=== PATIENT | female | born 1965 | race Caucasian/White ===

== ENCOUNTER 2017-11-09 11:14 | Emergency (ER) | payer BC, MEDICAID ==
[~2017-11-09] VITALS: Ht 167.6 cm; Wt 72.2 kg
[2017-11-09 12:53] VITALS: BP 132/94
== END 2017-11-09 12:55 | disposition home or self-care (01) ==
LOC: ER 11:15
DX: R21 Rash and other nonspecific skin eruption (principal); Z88.5 Allergy status to narcotic agent
CPT/HCPCS: 99281

== ENCOUNTER 2020-01-20 23:37 | Emergency (ER) | payer MEDICAID ==
[~2020-01-20] VITALS: Ht 167.6 cm; Wt 68.2 kg
[~2020-01-20 23:37] MED LIST: BUPR-344 PO; DISU500T PO; GABA-532 PO; LEVO125T PO; TRAZ-251 PO
[2020-01-20] MEDS ORDERED: famotidine/PF 10 mg/ml inj IV ONE (23:55)
[2020-01-20] MEDS ORDERED: pantoprazole 40 MG vial IV ONE (23:55)
[2020-01-20] MEDS ORDERED: phenobarbital inj 260 MG in normal saline 100ml IV soln 100 ML IV ONE (23:55)
[2020-01-20] MEDS ORDERED: normal saline 1000ML IV soln IVB ONE (23:55)
[2020-01-20] MEDS ORDERED: ondansetron/PF 4mg/2ml inj IV ONE (23:55)
[2020-01-20] MEDS ORDERED: magnesium oxide 400mg tablet PO ONE (23:55)
[2020-01-20] MEDS ORDERED: thiamine 100mg tablet PO ONE (23:55)
[2020-01-21 00:20] LABS: ALANINE AMINOTRANSFERASE 41 U/L (12-78); ALBUMIN 3.6 G/DL (3.4-5.0); ALBUMIN/GLOBULIN RATIO 1.1 (1.1-1.5); ALKALINE PHOSPHATASE 84 IU/L (46-116); ANION GAP 11 (8-16); BILIRUBIN,TOTAL 1.5 MG/DL (0.1-1.0); BLOOD UREA NITROGEN 21 MG/DL (7-18); BUN/CREATININE RATIO 18.3 (6.6-38.0); CALCIUM 8.2 MG/DL (8.5-10.1); CHLORIDE 104 MMOL/L (99-107); CREATININE 1.15 MG/DL (0.40-0.90); GLUCOSE 122 MG/DL (70-104); MAGNESIUM 1.9 MG/DL (1.5-2.4); POTASSIUM 3.4 MMOL/L (3.5-5.1); SODIUM 140 MMOL/L (135-145); TOTAL CARBON DIOXIDE 25.5 MMOL/L (24-32); eGFR 49 ML/MIN
[2020-01-21 00:29] LABS: BASOPHILS # (AUTO) 0.2 X10'3 (0-0.2); LYMPHOCYTES # (AUTO) 2.3 X10'3 (1.1-4.8); MONOCYTES # (AUTO) 0.4 X10'3 (0-0.9); NEUTROPHILS # (AUTO) 3.3 X10'3 (1.8-7.7)
[2020-01-21 00:31] LABS: BASOPHILS % (AUTO) 2.7 % (0-1); EOSINOPHILS % (AUTO) 0.7 % (0-6); HEMATOCRIT 46.9 % (35.0-45.0); HEMOGLOBIN 16.2 g/dl (12.0-16.0); LYMPHOCYTES % (AUTO) 37.3 % (21-51); MEAN CORPUSCULAR HEMOGLOBIN 32.3 PG (27.0-31.0); MEAN CORPUSCULAR HGB CONC 34.6 g/dL (33.0-36.5); MEAN CORPUSCULAR VOLUME 93.4 FL (78-98); MEAN PLATELET VOLUME 8.4 FL (7.4-10.4); MONOCYTES % (AUTO) 6.6 % (2-12); NEUTROPHILS % (AUTO) 52.7 % (42-75); PLATELET COUNT 286 X10'3 (140-440); RED BLOOD COUNT 5.02 X10'6 (4.20-5.60); RED CELL DISTRIBUTION WIDTH 12.9 % (11.5-14.5); WHITE BLOOD COUNT 6.3 X10'3 (4.5-11.0)
[2020-01-21 00:35] LABS: ETHANOL 0.335 GM/DL (0.0-0.010)
[2020-01-21 00:39] LABS: ASPARTATE AMINO TRANSFERASE 50 U/L (10-37)
[2020-01-21] MEDS ORDERED: ONDA4TAB6 PO (00:40)
--- NOTE | 2020-01-21 01:16 | NUR ---
GAVE PT SOME CRACKERS , ALANA MERINO. DR Nate LANG WELL PRIMARY RN . PT ALSO GIVEN THREE WARM BLANKETS PLAN OF CARE UPDATED
[2020-01-21] MEDS ORDERED: phenobarbital inj 130 MG in normal saline 250ml IV soln 250 ML IV ONE (01:30)
[2020-01-21] MEDS ORDERED: HYDR-3965 PO (01:40)
[2020-01-21] MEDS ORDERED: ondansetron/PF 4mg/2ml inj IV ONE (02:10)
[2020-01-21 02:39] VITALS: BP 140/85
== END 2020-01-21 02:40 | disposition home or self-care (01) ==
LOC: ER 23:37
DX: F10.129 Alcohol abuse with intoxication, unspecified (principal); F10.239 Alcohol dependence with withdrawal, unspecified; K29.20 Alcoholic gastritis without bleeding; E86.0 Dehydration; H61.23 Impacted cerumen, bilateral; R11.10 Vomiting, unspecified; Z88.5 Allergy status to narcotic agent; Z79.899 Other long term (current) drug therapy; Y90.0 Blood alcohol level of less than 20 mg/100 ml
CPT/HCPCS: 36415; 80053; 80320; 83735; 83880; 84484; 85025; 93005; 96365; 96366; 96375; 96376; 99284; C9113; J2405; J2560; J3490; J7030; J7050

== ENCOUNTER 2020-06-12 18:15 | Emergency (ER) | payer MEDICAID ==
[~2020-06-12] VITALS: Ht 167.6 cm; Wt 72.7 kg
[~2020-06-12 18:15] MED LIST changes: +ONDA4TAB6 PO
[2020-06-12] MEDS ORDERED: normal saline 1000ML IV soln IVB ONE (18:35)
[2020-06-12 18:59] LABS: BASOPHILS # (AUTO) 0.1 X10'3 (0-0.2); BASOPHILS % (AUTO) 1.1 % (0-1); EOSINOPHILS % (AUTO) 0 % (0-6); HEMATOCRIT 44.2 % (35.0-45.0); HEMOGLOBIN 15.1 g/dl (12.0-16.0); LYMPHOCYTES # (AUTO) 1.8 X10'3 (1.1-4.8); LYMPHOCYTES % (AUTO) 16.5 % (21-51); MEAN CORPUSCULAR HEMOGLOBIN 32.7 PG (27.0-31.0); MEAN CORPUSCULAR HGB CONC 34.2 g/dL (33.0-36.5); MEAN CORPUSCULAR VOLUME 95.4 FL (78-98); MONOCYTES # (AUTO) 0.3 X10'3 (0-0.9); MONOCYTES % (AUTO) 2.9 % (2-12); NEUTROPHILS # (AUTO) 8.5 X10'3 (1.8-7.7); NEUTROPHILS % (AUTO) 79.5 % (42-75); PLATELET COUNT 253 X10'3 (140-440); RED BLOOD COUNT 4.63 X10'6 (4.20-5.60); RED CELL DISTRIBUTION WIDTH 14.3 % (11.5-14.5); WHITE BLOOD COUNT 10.7 X10'3 (4.5-11.0)
[2020-06-12 19:20] LABS: ALANINE AMINOTRANSFERASE 117 U/L (12-78); ALBUMIN/GLOBULIN RATIO 1.1 (1.1-1.5); ALKALINE PHOSPHATASE 77 IU/L (46-116); ANION GAP 19 (8-16); ASPARTATE AMINO TRANSFERASE 201 U/L (10-37); BILIRUBIN,TOTAL 0.5 MG/DL (0.1-1.0); BLOOD UREA NITROGEN 19 MG/DL (7-18); BUN/CREATININE RATIO 20.2 (6.6-38.0); CALCIUM 8.4 MG/DL (8.5-10.1); CHLORIDE 102 MMOL/L (99-107); CREATININE 0.94 MG/DL (0.40-0.90); GLUCOSE 100 MG/DL (70-104); POTASSIUM 3.4 MMOL/L (3.5-5.1); SODIUM 144 MMOL/L (135-145); TOTAL CARBON DIOXIDE 23.1 MMOL/L (24-32); TOTAL PROTEIN 7.5 G/DL (6.4-8.2); eGFR 62 ML/MIN
[2020-06-12] MEDS ORDERED: normal saline 1000ml 1,000 ML IV ONE ×3 (19:45→23:40)
[2020-06-12 19:46] LABS: COLOR,URINE YELLOW (Yellow); GLUCOSE, URINE NEGATIVE (Neg); KETONES,URINE NEGATIVE (Neg); LEUKOCYTE ESTERASE ,URINE SMALL (Neg); NITRITES, URINE POSITIVE (Neg); OCCULT BLOOD,URINE MODERATE (Neg); PROTEIN,URINE NEGATIVE (Neg); UROBILINOGEN,URINE 0.2 E.U/dL (0.2-1.0)
[2020-06-12 19:53] LABS: CLARITY,URINE SLIGHTLY CLOUDY (Clear); UA COLLECTION TYPE NON-SPECIFIED
[2020-06-12 19:54] LABS: BACTERIA,URINE 2+ /HPF (Neg); RBC,URINE 0-2 /HPF (0-2); SQUAMOUS EPITHELIAL CELL,UR FEW /LPF (FEW)
[2020-06-12] MEDS ORDERED: potassium Cl 20 mEq SR tablet PO ONE (20:20)
[2020-06-12] MEDS ORDERED: folic acid 1mg/0.2ml inj IV ONE (20:45)
[2020-06-12] MEDS ORDERED: CefTRIAXone/D5W-Rocephin 1gm 50 ML IV ONE (20:45)
[2020-06-12] MEDS ORDERED: thiamine 100mg/ml 2ml inj. IV ONE (20:45)
[2020-06-12 21:04] LABS: ETHANOL 0.403 GM/DL (0.0-0.010)
[2020-06-12] MEDS ORDERED: ondansetron/PF 4mg/2ml inj IV ONE (23:40)
[2020-06-12] MEDS ORDERED: LORazepam 2 mg/ml vial IV ONE (23:55)
[2020-06-13] MEDS ORDERED: CEPH500C5 PO (00:59)
[2020-06-13] MEDS ORDERED: phenobarbital inj 260 MG in normal saline 100ml IV soln 100 ML IV ONE (01:05)
[2020-06-13 01:48] LABS: ALANINE AMINOTRANSFERASE 86 U/L (12-78); ALBUMIN/GLOBULIN RATIO 1.1 (1.1-1.5); ALKALINE PHOSPHATASE 61 IU/L (46-116); ANION GAP 14 (8-16); ASPARTATE AMINO TRANSFERASE 126 U/L (10-37); BILIRUBIN,TOTAL 0.5 MG/DL (0.1-1.0); BLOOD UREA NITROGEN 18 MG/DL (7-18); CALCIUM 6.9 MG/DL (8.5-10.1); CHLORIDE 106 MMOL/L (99-107); GLUCOSE 149 MG/DL (70-104); POTASSIUM 3.6 MMOL/L (3.5-5.1); SODIUM 142 MMOL/L (135-145); TOTAL CARBON DIOXIDE 22.1 MMOL/L (24-32); TOTAL PROTEIN 5.8 G/DL (6.4-8.2); eGFR 65 ML/MIN
[2020-06-13] MEDS ORDERED: phenobarbital inj 130 MG in normal saline 100ml IV soln 100 ML IV ONE ×2 (02:10→04:05)
[2020-06-13 06:43] VITALS: BP 121/94
== END 2020-06-13 06:47 | disposition home or self-care (01) ==
LOC: ER 18:15
DX: N39.0 Urinary tract infection, site not specified (principal); E87.2 Acidosis; F10.129 Alcohol abuse with intoxication, unspecified; E87.6 Hypokalemia; Z72.89 Other problems related to lifestyle; Z60.2 Problems related to living alone; Z88.8 Allergy status to other drugs, medicaments and biological substances; Z79.2 Long term (current) use of antibiotics; Z79.899 Other long term (current) drug therapy; Y90.0 Blood alcohol level of less than 20 mg/100 ml
CPT/HCPCS: 36415; 80053; 80320; 81001; 83605; 85025; 87077; 87088; 87186; 93005; 96361; 96365; 96366; 96367; 96375; 99285; J0696; J2060; J2405; J2560; J3411; J3490; J7030; 96376

== ENCOUNTER 2020-12-27 10:40 | Emergency (ER) | payer MEDICAID ==
[~2020-12-27] VITALS: Ht 167.6 cm; Wt 71.4 kg
[2020-12-27 10:45] VITALS: BP 157/104
== END 2020-12-27 12:18 | disposition home or self-care (01) ==
LOC: ER 10:40
DX: Z02.89 Encounter for other administrative examinations (principal); S00.31XA Abrasion of nose, initial encounter; F10.20 Alcohol dependence, uncomplicated; G89.29 Other chronic pain; F32.9 Major depressive disorder, single episode, unspecified; Z72.89 Other problems related to lifestyle; Z60.2 Problems related to living alone; Z88.8 Allergy status to other drugs, medicaments and biological substances; Z79.899 Other long term (current) drug therapy; X58.XXXA Exposure to other specified factors, initial encounter; Y93.89 Activity, other specified; Y92.89 Other specified places as the place of occurrence of the external cause; Y99.8 Other external cause status; Y90.9 Presence of alcohol in blood, level not specified
CPT/HCPCS: 70450; 99284

== ENCOUNTER 2021-02-15 12:19 | Inpatient (IN) | payer MEDICAID ==
[~2021-02-15] VITALS: Ht 167.6 cm; Wt 64.0 kg
[2021-02-15 13:19] LABS: BASOPHILS % (AUTO) 0.2 % (0-1); EOSINOPHILS % (AUTO) 0.3 % (0-6); HEMATOCRIT 42.9 % (35.0-45.0); HEMOGLOBIN 14.3 g/dl (12.0-16.0); LYMPHOCYTES # (AUTO) 0.3 X10'3 (1.1-4.8); LYMPHOCYTES % (AUTO) 4.6 % (21-51); MEAN CORPUSCULAR HEMOGLOBIN 32.5 PG (27.0-31.0); MEAN CORPUSCULAR HGB CONC 33.3 g/dL (33.0-36.5); MEAN CORPUSCULAR VOLUME 97.5 FL (78-98); MEAN PLATELET VOLUME 9.2 FL (7.4-10.4); MONOCYTES # (AUTO) 0.3 X10'3 (0-0.9); NEUTROPHILS % (AUTO) 90.9 % (42-75); PLATELET COUNT 101 X10'3 (140-440); RED CELL DISTRIBUTION WIDTH 15.8 % (11.5-14.5); WHITE BLOOD COUNT 6.6 X10'3 (4.5-11.0)
[2021-02-15 13:40] LABS: ANISOCYTOSIS 1+; NUCLEATED RED BLOOD CELLS 1 /100WBC (0-0); PLATELET ESTIMATE DECREASED; TOTAL CELLS COUNTED 100
[2021-02-15 13:41] LABS: ALANINE AMINOTRANSFERASE 108 U/L (12-78); ALBUMIN 3.5 G/DL (3.4-5.0); ALBUMIN/GLOBULIN RATIO 0.9 (1.1-1.5); ALKALINE PHOSPHATASE 127 IU/L (46-116); ANION GAP 21 (8-16); ASPARTATE AMINO TRANSFERASE 232 U/L (10-37); BILIRUBIN,TOTAL 1.6 MG/DL (0.1-1.0); BLOOD UREA NITROGEN 35 MG/DL (7-18); BUN/CREATININE RATIO 20.6 (6.6-38.0); CALCIUM 7.6 MG/DL (8.5-10.1); CHLORIDE 80 MMOL/L (99-107); ETHANOL < 0.010 GM/DL (0.0-0.010); GLUCOSE 197 MG/DL (70-104); POLYCHROMASIA FEW; POTASSIUM 3.7 MMOL/L (3.5-5.1); SODIUM 122 MMOL/L (135-145); TOTAL CARBON DIOXIDE 21.2 MMOL/L (24-32); TOTAL PROTEIN 7.2 G/DL (6.4-8.2); TOXIC VACUOLATION 1+; eGFR 31 ML/MIN
[2021-02-15] MEDS ORDERED: normal saline 1000ML IV soln IVB ONE ×2 (14:40)
[2021-02-15] MEDS ORDERED: pantoprazole 40 MG vial IV ONE (14:50)
[2021-02-15] MEDS ORDERED: ondansetron/PF 4mg/2ml inj IV ONE (14:50)
[2021-02-15] MEDS ORDERED: proCHLORperazine 10 MG/2 ml inj IV ONE (16:25)
[2021-02-15 17:09] LABS: ANION GAP 13 (8-16); BLOOD UREA NITROGEN 30 MG/DL (7-18); BUN/CREATININE RATIO 23.4 (6.6-38.0); CHLORIDE 92 MMOL/L (99-107); CREATININE 1.28 MG/DL (0.40-0.90); GLUCOSE 134 MG/DL (70-104); POTASSIUM 3.9 MMOL/L (3.5-5.1); SODIUM 131 MMOL/L (135-145); TOTAL CARBON DIOXIDE 25.7 MMOL/L (24-32); eGFR 43 ML/MIN
[2021-02-15 17:12] LABS: URINE AMPHETAMINE SCREEN NEGATIVE (Neg); URINE BARBITUATE SCREEN NEGATIVE (Neg); URINE BENZODIAZEPINES SCREEN NEGATIVE (Neg); URINE CANNABINOID SCREEN NEGATIVE (Neg); URINE COCAINE SCREEN NEGATIVE (Neg); URINE METHADONE SCREEN NEGATIVE (Neg); URINE OPIATE SCREEN NEGATIVE (Neg); URINE PHENCYCLIDINE SCREEN NEGATIVE (Neg)
[2021-02-15 17:14] LABS: CLARITY,URINE SLIGHTLY CLOUDY (Clear); COLOR,URINE YELLOW (Yellow); GLUCOSE, URINE NEGATIVE (Neg); KETONES,URINE 15 mg/dl (Neg); LEUKOCYTE ESTERASE ,URINE MODERATE (Neg); NITRITES, URINE NEGATIVE (Neg); OCCULT BLOOD,URINE LARGE (Neg); PH,URINE 6.5 (4.8-8.0); PROTEIN,URINE NEGATIVE (Neg); UA COLLECTION TYPE CLN CATCH MIDSTREAM; UROBILINOGEN,URINE 0.2 E.U/dL (0.2-1.0)
[2021-02-15 17:29] LABS: BACTERIA,URINE 4+ /HPF (Neg); SQUAMOUS EPITHELIAL CELL,UR FEW /LPF (FEW); WBC CLUMPS,URINE FEW /HPF (NEGATIVE)
[2021-02-15] MEDS ORDERED: temazepam 15mg capsule PO PRN (21:00)
[2021-02-15] MEDS ORDERED: magnesium 2GM in 50ml NS 50 ML IV PRN (21:55)
[2021-02-15] MEDS ORDERED: acetaminophen 325mg tablet PO PRN ×2 (21:55)
[2021-02-15] MEDS ORDERED: potassium Cl 40MEQ/1/2NS 520ml 520 ML IV PRN ×2 (21:55)
[2021-02-15] MEDS ORDERED: magnesium 4gm in 100ml NS 100 ML IV PRN (21:55)
[2021-02-15] MEDS ORDERED: magnesium Cl slow-release 64mg tablet PO PRN (21:55)
[2021-02-15] MEDS ORDERED: LORazepam 2 mg/ml vial IV PRN (21:55)
[2021-02-15] MEDS ORDERED: LORazepam 1 MG tablet PO PRN (21:55)
[2021-02-15] MEDS ORDERED: ondansetron/PF 4mg/2ml inj IV PRN (21:55)
[2021-02-15] MEDS ORDERED: mag hydrox/Alum hydrox/simeth 30ml oral suspension PO PRN (21:55)
[2021-02-15] MEDS ORDERED: aspirin 325mg tablet PO ONE (22:05)
[2021-02-15] MEDS ORDERED: TRAZ150T78 PO (23:53)
[2021-02-15] MEDS ORDERED: CLON0.1T2 PO (23:53)
[2021-02-15] MEDS ORDERED: LEVO137T2 PO (23:53)
[2021-02-15] MEDS ORDERED: BUPR300T86 PO (23:53)
[2021-02-15] MEDS ORDERED: GABA-530 PO (23:53)
[2021-02-16] MEDS: normal saline 1000ml 1,000 ML IV SCH ×3 (00:06→22:21)
[2021-02-16] MEDS: CefTRIAXone 2gm/D5W 50ml BAG 50 ML IV SCH ×2 (00:06→10:12)
[2021-02-16 00:36] LABS: BASOPHILS % (AUTO) 0.1 % (0-1); EOSINOPHILS % (AUTO) 0.1 % (0-6); HEMATOCRIT 38.2 % (35.0-45.0); LYMPHOCYTES # (AUTO) 0.3 X10'3 (1.1-4.8); MEAN CORPUSCULAR HEMOGLOBIN 31.9 PG (27.0-31.0); MEAN CORPUSCULAR VOLUME 93.9 FL (78-98); MEAN PLATELET VOLUME 9.1 FL (7.4-10.4); MONOCYTES # (AUTO) 0.4 X10'3 (0-0.9); MONOCYTES % (AUTO) 6.7 % (2-12); NEUTROPHILS # (AUTO) 5.6 X10'3 (1.8-7.7); NEUTROPHILS % (AUTO) 88.1 % (42-75); PLATELET COUNT 83 X10'3 (140-440); RED BLOOD COUNT 4.07 X10'6 (4.20-5.60); RED CELL DISTRIBUTION WIDTH 14.8 % (11.5-14.5); WHITE BLOOD COUNT 6.3 X10'3 (4.5-11.0)
[2021-02-16 00:49] LABS: ALANINE AMINOTRANSFERASE 94 U/L (12-78); ALBUMIN/GLOBULIN RATIO 0.9 (1.1-1.5); ALKALINE PHOSPHATASE 108 IU/L (46-116); ANION GAP 16 (8-16); ASPARTATE AMINO TRANSFERASE 186 U/L (10-37); BILIRUBIN,TOTAL 1.1 MG/DL (0.1-1.0); BLOOD UREA NITROGEN 23 MG/DL (7-18); BUN/CREATININE RATIO 18.4 (6.6-38.0); CALCIUM 7.3 MG/DL (8.5-10.1); CHLORIDE 94 MMOL/L (99-107); CHOL/HDL RATIO 3.7 (0.00-4.99); CHOLESTEROL 115 MG/DL (0-200); CREATININE 1.25 MG/DL (0.40-0.90); GLUCOSE 132 MG/DL (70-104); HDL CHOLESTEROL 31 MG/DL (35-60); LDL CHOLESTEROL 39 MG/DL (50-100); LIPASE 857 U/L (73-393); MAGNESIUM 1.9 MG/DL (1.5-2.4); PHOSPHORUS 1.8 MG/DL (2.3-4.5); POTASSIUM 3.4 MMOL/L (3.5-5.1); SODIUM 134 MMOL/L (135-145); TOTAL CARBON DIOXIDE 24.5 MMOL/L (24-32); TOTAL PROTEIN 6.3 G/DL (6.4-8.2); TRIGLYCERIDES 230 MG/DL (20-135); eGFR 44 ML/MIN
--- NOTE | 2021-02-16 07:27 | NUR ---
SWALLOW STUDY COMPLETED PER ST. PATIENT WILL BE ON THE [facility] SOFT DIET WITH THIN LIQUIDS.
[2021-02-16] MEDS: K and/or MAG REPLACEMENT MC SCH ×2 (08:00→20:00)
[2021-02-16] MEDS ORDERED: PERFLUTREN PROTEIN-A MICROSPHR (Optison) 0.22 MG/ML 3ML VIAL IV ONE (08:00)
[2021-02-16] MEDS ORDERED: heparin, porcine 5000 units/ml vial SQ SCH (08:00)
[2021-02-16] MEDS ORDERED: LEVO150T8 PO (08:21)
[2021-02-16] MEDS ORDERED: levoTHYROXINE 75mcg tablet PO SCH (08:49)
[2021-02-16] MEDS: buPROPion SR 150mg tablet PO SCH ×2 (10:12→20:00)
[2021-02-16] MEDS: atorvastatin 20mg tablet PO SCH (10:12)
[2021-02-16] MEDS: pantoprazole 40 MG vial IV SCH (10:12)
[2021-02-16] MEDS: levoTHYROXINE 75mcg tablet PO SCH (10:12)
[2021-02-16] MEDS: nystatin/triamcinolone cream 15gm TP SCH ×2 (10:13→22:20)
--- NOTE | 2021-02-16 16:00 | NUR ---
Dr Baptiste notified of MRI results,orders received for plavix, asprin and SCD's. SCD's placed on patient at this time.
[2021-02-16] MEDS: aspirin 81mg, enteric-coated 1 TAB TABLET.DR PO SCH (16:26)
[2021-02-16] MEDS: clopidogrel 75mg tablet PO SCH (16:26)
--- NOTE | 2021-02-16 17:54 | NUR ---
PATIENT IS FREQUENTLY UP WALKING AROUND ROOM AND TAKING OFF PULSE OX AND BP CUFF. MONITORING EQUIPMENT REAPPLIED AND PATIENT IS ASKED SEVERAL TIMES THROUGHOUT THE SHIFT TO KEEP THESE ON FOR MONITORING.
--- NOTE | 2021-02-16 19:00 | NUR ---
Patient in room PCU 3014. I have received report from RONAK Lee and had the opportunity to ask questions and assume patient care.
[2021-02-16 20:00] VITALS: BP_SYST 126; BP_DIAS 78; BP_DIAS 98
[2021-02-16] MEDS ORDERED: cloNIDine 0.1 mg tablet PO SCH (21:00)
[2021-02-16] MEDS ORDERED: gabapentin 300mg capsule PO SCH (21:00)
[2021-02-16] MEDS ORDERED: traZODone 150mg tablet PO SCH (21:00)
[2021-02-16 22:00] VITALS: BP 123/80
[2021-02-16] MEDS: potassium Cl 20 mEq SR tablet PO PRN (22:27)
[2021-02-17] MEDS: normal saline 1000ml 1,000 ML IV SCH ×2 (03:55→13:55)
[2021-02-17] MEDS: potassium Cl 20 mEq SR tablet PO PRN ×3 (04:01→12:12)
[2021-02-17 06:00] VITALS: BP 126/75
--- NOTE | 2021-02-17 06:08 | NUR ---
[place] Medication Administration: For this medication-pass time frame, all medication were reviewed, dispensed, administered and documented per hospital policy by RONAK White. [place] documentation: I have reviewed and agree with all interventions, assessments performed and documented by RONAK White.
--- NOTE | 2021-02-17 06:28 | NUR ---
Problems reprioritized. Patient report given, questions answered & plan of care reviewed with RONAK Salas.
--- NOTE | 2021-02-17 06:30 | NUR ---
Patient in room PCU 3014. I have received report from RONAK Marroquin and had the opportunity to ask questions and assume patient care.
[2021-02-17 06:53] LABS: BASOPHILS % (AUTO) 0.1 % (0-1); EOSINOPHILS # (AUTO) 0.1 X10'3 (0-0.9); EOSINOPHILS % (AUTO) 1.6 % (0-6); HEMATOCRIT 35.7 % (35.0-45.0); HEMOGLOBIN 12.2 g/dl (12.0-16.0); LYMPHOCYTES # (AUTO) 0.7 X10'3 (1.1-4.8); LYMPHOCYTES % (AUTO) 16.8 % (21-51); MEAN CORPUSCULAR HEMOGLOBIN 32.4 PG (27.0-31.0); MEAN CORPUSCULAR HGB CONC 34.1 g/dL (33.0-36.5); MEAN CORPUSCULAR VOLUME 95.2 FL (78-98); MEAN PLATELET VOLUME 9.8 FL (7.4-10.4); MONOCYTES # (AUTO) 0.3 X10'3 (0-0.9); MONOCYTES % (AUTO) 7.7 % (2-12); NEUTROPHILS # (AUTO) 3.1 X10'3 (1.8-7.7); NEUTROPHILS % (AUTO) 73.8 % (42-75); PLATELET COUNT 73 X10'3 (140-440); RED BLOOD COUNT 3.75 X10'6 (4.20-5.60); WHITE BLOOD COUNT 4.2 X10'3 (4.5-11.0)
[2021-02-17 07:18] LABS: ALANINE AMINOTRANSFERASE 79 U/L (12-78); ALBUMIN 2.6 G/DL (3.4-5.0); ALBUMIN/GLOBULIN RATIO 0.9 (1.1-1.5); ALKALINE PHOSPHATASE 90 IU/L (46-116); ANION GAP 9 (8-16); ASPARTATE AMINO TRANSFERASE 99 U/L (10-37); BILIRUBIN,TOTAL 0.8 MG/DL (0.1-1.0); BLOOD UREA NITROGEN 7 MG/DL (7-18); BUN/CREATININE RATIO 7.9 (6.6-38.0); CALCIUM 7.5 MG/DL (8.5-10.1); CHLORIDE 100 MMOL/L (99-107); CREATININE 0.89 MG/DL (0.40-0.90); GLUCOSE 143 MG/DL (70-104); PHOSPHORUS 1.3 MG/DL (2.3-4.5); SODIUM 136 MMOL/L (135-145); TOTAL CARBON DIOXIDE 27.2 MMOL/L (24-32); TOTAL PROTEIN 5.6 G/DL (6.4-8.2); eGFR 66 ML/MIN
[2021-02-17 07:37] LABS: LIPASE 7847 U/L (73-393)
--- NOTE | 2021-02-17 07:47 | NUR ---
Paged Dr. Baptiste PAGER ID: [phone] MESSAGE: [phone] Abimbola Guajardo; potassium 3.0, replacing per protocol. Ekaterina SIMONS [phone]
[2021-02-17] MEDS: aspirin 81mg, enteric-coated 1 TAB TABLET.DR PO SCH (08:45)
[2021-02-17] MEDS: atorvastatin 20mg tablet PO SCH (08:45)
[2021-02-17] MEDS: buPROPion SR 150mg tablet PO SCH (08:45)
[2021-02-17] MEDS: pantoprazole 40 MG vial IV SCH (08:46)
[2021-02-17] MEDS: clopidogrel 75mg tablet PO SCH (08:46)
[2021-02-17] MEDS: K and/or MAG REPLACEMENT MC SCH (08:46)
[2021-02-17] MEDS: levoTHYROXINE 75mcg tablet PO SCH (08:48)
[2021-02-17] MEDS: nystatin/triamcinolone cream 15gm TP SCH (08:49)
[2021-02-17] MEDS ORDERED: ATOR20TA66 PO (09:04)
[2021-02-17] MEDS ORDERED: CLOP75TA34 PO (09:04)
[2021-02-17] MEDS ORDERED: ASPI-1071 PO (09:04)
[2021-02-17] MEDS: CefTRIAXone 2gm/D5W 50ml BAG 50 ML IV SCH (12:13)
[2021-02-17] MEDS ORDERED: sulfamethoxazole/trimethoprim DS (800/160mg) tablet PO SCH (13:06)
[2021-02-17] MEDS ORDERED: MYCOL15CR TP (13:07)
--- NOTE | 2021-02-17 15:16 | NUR ---
Patient is stable for discharge per MD orders. All discharge instructions per MD orders. All discharge instructions reviewed with patient and all questions answered. Patient will make own follow-up appointment. New prescriptions sent to [facility]. PIV discontinued with cannula intact. quality assurance monitor body discontinued. Belongings sent with patient. Patient was wheeled to lobby and left in a private vehicle with a family member.
[2021-02-18] MEDS ORDERED: pantoprazole 40mg Tablet.DR PO SCH (07:30)
== END 2021-02-17 15:11 | disposition home or self-care (01) | DRG 45 ==
LOC: ER 12:21 → ED HOLD 21:58 → PCU 3S 02-16 20:00
PROVIDERS: ADMIT Internal Medicine; ATTEND Internal Medicine
DX: I63.9 Cerebral infarction, unspecified (principal); D69.59 Other secondary thrombocytopenia; E87.1 Hypo-osmolality and hyponatremia; K72.90 Hepatic failure, unspecified without coma; B96.89 Other specified bacterial agents as the cause of diseases classified elsewhere; E03.9 Hypothyroidism, unspecified; E87.6 Hypokalemia; F32.9 Major depressive disorder, single episode, unspecified; G89.29 Other chronic pain; R21 Rash and other nonspecific skin eruption; R26.81 Unsteadiness on feet; R26.89 Other abnormalities of gait and mobility; R29.702 NIHSS score 2; Z60.2 Problems related to living alone; F10.229 Alcohol dependence with intoxication, unspecified; R47.1 Dysarthria and anarthria; R74.8 Abnormal levels of other serum enzymes; I12.9 Hypertensive chronic kidney disease with stage 1 through stage 4 chronic kidney disease, or unspecified chronic kidney disease; N18.30 Chronic kidney disease, stage 3 unspecified; N39.0 Urinary tract infection, site not specified; Z79.02 Long term (current) use of antithrombotics/antiplatelets; Z79.82 Long term (current) use of aspirin; Z79.899 Other long term (current) drug therapy; Z88.5 Allergy status to narcotic agent; Z71.41 Alcohol abuse counseling and surveillance of alcoholic; Z79.890 Hormone replacement therapy
CPT/HCPCS: 36415; 70450; 70544; 70551; 71045; 80048; 80053; 80061; 80305; 80320; 81001; 82140; 82948; 83036; 83690; 83735; 84100; 85007; 85025; 87077; 87081; 87088; 87186; 92508; 92616; 93005; 93306; 93880; 97116; 97161; 97530; 99285; C9113; G0378; J0696; J0780; J2405; J7030; J7999

== ENCOUNTER 2022-06-26 13:01 | Emergency (ER) | payer MEDICAID ==
[~2022-06-26] VITALS: Ht 167.6 cm; Wt 63.6 kg
[~2022-06-26 13:01] MED LIST changes: +ASPI-1071 PO; +ATOR20TA66 PO; -BUPR-344 PO; +BUPR300T86 PO; +CLON0.1T2 PO; +CLOP75TA34 PO; -DISU500T PO; +GABA-530 PO; -GABA-532 PO; -LEVO125T PO; +LEVO150T8 PO; -ONDA4TAB6 PO; -TRAZ-251 PO; +TRAZ150T78 PO
[2022-06-26] MEDS ORDERED: normal saline 1000ML IV soln IVB ONE (14:05)
[2022-06-26] MEDS ORDERED: thiamine 100mg tablet PO ONE (14:05)
[2022-06-26] MEDS ORDERED: folic acid 1mg tablet PO ONE (14:05)
[2022-06-26 17:37] VITALS: BP 101/56
== END 2022-06-26 17:41 | disposition home or self-care (01) ==
LOC: ER 13:02
DX: F10.10 Alcohol abuse, uncomplicated (principal); G89.29 Other chronic pain; Z88.5 Allergy status to narcotic agent; Y90.9 Presence of alcohol in blood, level not specified
CPT/HCPCS: 99284; J7030